=== PATIENT | male | born 1960 | race Caucasian/White ===

== ENCOUNTER 2018-11-24 07:03 | Emergency (ER) | payer MEDICARE | END 2018-11-24 08:42 | disposition home or self-care (01) | LOC: DL.ED 07:03 | DX: S43.101A Unspecified dislocation of right acromioclavicular joint, initial encounter (principal); S49.92XA Unspecified injury of left shoulder and upper arm, initial encounter; I10 Essential (primary) hypertension; G30.9 Alzheimer's disease, unspecified; F02.80 Dementia in other diseases classified elsewhere, unspecified severity, without behavioral disturbance, psychotic disturbance, mood disturbance, and anxiety; I25.10 Atherosclerotic heart disease of native coronary artery without angina pectoris; Z95.1 Presence of aortocoronary bypass graft; W01.198A Fall on same level from slipping, tripping and stumbling with subsequent striking against other object, initial encounter | CPT/HCPCS: 73030-LT; 73030-RT; 96372; 99283-25; J2360 ==

== ENCOUNTER 2019-08-20 11:30 | Emergency (ER) | payer MEDICARE ==
[2019-08-20 12:48] LABS: ANION GAP 12.9; CHLORIDE,CL 106 mmol/L (101-111); SODIUM,NA 138 mmol/L (135-145)
--- NOTE | 2019-08-20 13:23 | CT ---
EXAMINATION: Abdomen Pelvis wo Cont SEX: Male AGE: 58 years CLINICAL HISTORY: 58-year-old 221 pound hypertensive male smoker (cigars) who FELL last night injuring lower left abdomen (bright red "bloody stools"). ABDOMINAL PAIN. Scan technique: Volume acquisition of data from the abdomen and pelvis obtained without oral or IV contrast while patient was lying supine on the Siemens multislice scanner [place], [place]. All data archived in the PACS system for storage, reformatting axial/sagittal/coronal planes and study. Interpretation: 1. Densely calcified "cast" normal caliber aortoiliac vessels i.e. no aneurysm or dissection. 2. No sign of abdominal wall contusion or subcutaneous hematoma. No ventral wall hernias. 3. A few small diverticula scattered sigmoid colon without associated signs of inflammation. No colonic mass lesion, inflammatory "dirty" peritoneal fat, pelvic/abdominal mass lesion, signs of hemoperitoneum/ascites, or free air. 4. Cholecystectomy. Unenhanced liver, stomach, spleen, pancreas, adrenal glands and kidneys unremarkable. No sign of renal cortical laceration, cystic/solid cortical mass lesion, nephrolithiasis or obstructive uropathy. Normal appendix RLQ. 5. No abdominal or pelvic mass lesion, mesenteric/retroperitoneal lymphadenopathy, or mechanical bowel obstruction. 6. Multilevel disc disease and hypertrophic arthritic changes of spine. 7. Lung bases clear. Normal cardiac silhouette. CONCLUSION: Usual signs of senescence. Cholecystectomy. No sign of abdominal wall or acute intraperitoneal abnormality.
--- NOTE | 2019-08-20 14:31 | EDM.PDOC ---
ED HPI GENERAL MEDICAL PROBLEM - General Chief Complaint: Abdominal Pain Stated Complaint: BRAVO SENT OVER Time Seen by Provider: 08/20/19 14:10 Source of Information: Reports: Patient History Limitations: Reports: No Limitations - History of Present Illness INITIAL COMMENTS - FREE TEXT/NARRATIVE: This 58 yo male patient reports to the ED with increased abdominal pain. The patient reports he fell yesterday onto his left side. Yesterday, the patient reports he had a large "bloody" stool, but has not had another bloody stool since. The patient reports he has been experiencing increased diffuse abdominal pain throughout today. The patient reports he has also noticed increased gas today. Onset: Today Duration: Other Location: Reports: Abdomen Quality: Reports: Ache Severity: Moderate Improves with: Reports: None Worsens with: Reports: None Context: Reports: Other Associated Symptoms: Reports: No Other Symptoms Treatments SUPERINTENDENT HORTICULTURE: Reports: NSAIDS Left Lower Abdominal Pain Score (Numeric/FACES): 9 - Related Data Allergies Allergy/AdvReac Type Severity Reaction Status Date / Time iopamidol [From Isovue-M] Allergy Change Verified 08/20/19 11:57 Mental Status Penicillins Allergy Anaphylactic Verified 08/20/19 11:57 Shock Home Meds: Home Meds Acetaminophen 1,500 mg PO DAILY 08/20/19 [History] Aspirin [Halfprin] 81 mg PO DAILY 08/20/19 [History] Cyclobenzaprine [Flexeril] 10 mg PO TID PRN 08/20/19 [History] DULoxetine [Cymbalta] 60 mg PO DAILY 08/20/19 [History] Donepezil HCl [Aricept] 10 mg PO DAILY 08/20/19 [History] Levothyroxine 12.5 mg PO DAILY 08/20/19 [History] Loperamide [Imodium] 2 mg PO QID PRN 08/20/19 [History] Metoprolol Succinate [Toprol XL] 25 mg PO DAILY 08/20/19 [History] Mirtazapine 7.5 mg PO DAILY 08/20/19 [History] Pantoprazole Sodium [Protonix] 20 mg PO BID 08/20/19 [History] Pramipexole [Mirapex] 0.25 mg PO TID 08/20/19 [History] Pregabalin [Lyrica] 100 mg PO TID 08/20/19 [History] Sildenafil [Viagra] 100 mg PO DAILY PRN 08/20/19 [History] Vilazodone [Viibryd] 40 mg PO DAILY 08/20/19 [History] atorvaSTATin [Lipitor] 40 mg PO DAILY 08/20/19 [History] buPROPion HCl [Wellbutrin Xl] 150 mg PO DAILY 08/20/19 [History] Past Medical History Cardiovascular History: Reports: High Cholesterol, Hypertension, Stents Gastrointestinal History: Reports: Other (See Below) Other Gastrointestinal History: pancreatic problems Other Endocrine/Metabolic History: hx of hypoglycemia, not diagnosed with anything specific - Past Surgical History HEENT Surgical History: Reports: Oral Surgery, Other (See Below) Other HEENT Surgeries/Procedures: eye lid lift Other Cardiovascular Surgeries/Procedures: triple bypass in 1999 GI Surgical History: Reports: Cholecystectomy Musculoskeletal Surgical History: Reports: Shoulder Surgery Social & Family History - Caffeine Use Caffeine Use: Reports: Coffee - Recreational Drug Use Recreational Drug Use: Yes Drug Use in Last 12 Months: Yes Recreational Drug Type: Reports: Marijuana/Hashish Recreational Drug Use Frequency: Weekly ED ROS GENERAL - Review of Systems Review Of Systems: Comprehensive ROS is negative, except as noted in HPI. ED EXAM, GI/ABD - Physical Exam Exam: See Below Exam Limited By: No Limitations General Appearance: Alert, WD/WN, Moderate Distress Eyes: Bilateral: Normal Appearance, EOMI Ears: Normal External Exam, Normal Canal, Hearing Grossly Normal, Normal TMs Nose: Normal Inspection, Normal Mucosa, No Blood Throat/Mouth: Normal Inspection, Normal Lips, Normal Teeth, Normal Gums, Normal Oropharynx, Normal Voice, No Airway Compromise Head: Atraumatic, Normocephalic Neck: Normal Inspection, Supple, Non-Tender, Full Range of Motion Respiratory/Chest: No Respiratory Distress, Lungs Clear, Normal Breath Sounds, No Accessory Muscle Use, Chest Non-Tender Cardiovascular: Normal Peripheral Pulses, Regular Rate, Rhythm, No Edema, No Gallop, No JVD, No Murmur, No Rub GI/Abdominal Exam: Normal Bowel Sounds, Soft, No Organomegaly, No Distention, No Abnormal Bruit, No Mass, Pelvis Stable, Tender (diffuse) (Male) Exam: Deferred Rectal (Males) Exam: Deferred Back Exam: Normal Inspection, Full Range of Motion, NT Extremities: Normal Inspection, Normal Range of Motion, Non-Tender, Normal Capillary Refill, No Pedal Edema Neurological: Alert, Oriented, CN II-XII Intact, Normal Cognition, Normal Gait, Normal Reflexes, No Motor/Sensory Deficits Psychiatric: Normal Affect, Normal Mood Skin Exam: Warm, Dry, Intact, Normal Color, No Rash Lymphatic: No Adenopathy Course - Vital Signs Last Recorded V/S: Last Vital Signs Temp 37.1 C 08/20/19 11:57 Pulse 90 08/20/19 11:57 Resp 20 08/20/19 11:57 BP 132/80 08/20/19 11:57 Pulse Ox 98 08/20/19 11:57 - Orders/Labs/Meds Labs: Laboratory Tests 08/20/19 08/20/19 08/20/19 Range/Units 12:18 12:18 12:18 WBC 7.7 (5.0-10.0) 10^3/uL RBC 4.84 (4.6-6.2) 10^6/uL Hgb 14.9 (14.0-18.0) g/dL Hct 44.1 (40.0-54.0) % MCV 91.1 (80-100) fL MCH 30.8 (27.0-34.0) pg MCHC 33.8 (33.0-35.0) g/dL Plt Count 254 (150-450) 10^3/uL Neut % (Auto) 60.7 (42.2-75.2) % Lymph % (Auto) 22.2 (20.5-50.1) % [place] % (Auto) 12.2 H (2-8) % Eos % (Auto) 4.1 H (1.0-3.0) % Baso % (Auto) 0.8 (0.0-1.0) % Sodium 138 (135-145) mmol/L Potassium 3.9 (3.6-5.0) mmol/L Chloride 106 (101-111) mmol/L Carbon Dioxide 23.0 (21.0-31.0) mmol/L Anion Gap 12.9 BUN 7 (7-18) mg/dL Creatinine 0.9 (0.6-1.3) mg/dL Est Cr Clr Drug Dosing 96.45 mL/min Estimated GFR (MDRD) > 60 BUN/Creatinine Ratio 7.77 Glucose 105 (74-105) mg/dL Calcium 9.4 (8.4-10.2) mg/dl Total Bilirubin 0.6 (0.2-1.0) mg/dL AST 27 (10-42) IU/L ALT 21 (10-60) IU/L Alkaline Phosphatase 83 (42-121) IU/L Total Protein 7.4 (6.7-8.2) g/dl Albumin 4.2 (3.2-5.5) g/dl Globulin 3.2 Albumin/Globulin Ratio 1.31 Amylase 55 (28-100) U/L Lipase 32 (22-51) U/L Urine Color (YELLOW) Urine Appearance (CLEAR) Urine pH (5.0-9.0) Ur Specific [place] (1.005-1.030) Urine Protein (NEGATIVE) Urine Glucose (UA) (NEGATIVE) Urine Ketones (NEGATIVE) Urine Occult Blood (NEGATIVE) Urine Nitrite (NEGATIVE) Urine Bilirubin (NEGATIVE) Urine Urobilinogen (0.2-1.0) mg/dL Ur Leukocyte Esterase (NEGATIVE) 08/20/19 Range/Units 14:05 WBC (5.0-10.0) 10^3/uL RBC (4.6-6.2) 10^6/uL Hgb (14.0-18.0) g/dL Hct (40.0-54.0) % MCV (80-100) fL MCH (27.0-34.0) pg MCHC (33.0-35.0) g/dL Plt Count (150-450) 10^3/uL Neut % (Auto) (42.2-75.2) % Lymph % (Auto) (20.5-50.1) % [place] % (Auto) (2-8) % Eos % (Auto) (1.0-3.0) % Baso % (Auto) (0.0-1.0) % Sodium (135-145) mmol/L Potassium (3.6-5.0) mmol/L Chloride (101-111) mmol/L Carbon Dioxide (21.0-31.0) mmol/L Anion Gap BUN (7-18) mg/dL Creatinine (0.6-1.3) mg/dL Est Cr Clr Drug Dosing mL/min Estimated GFR (MDRD) BUN/Creatinine Ratio Glucose (74-105) mg/dL Calcium (8.4-10.2) mg/dl Total Bilirubin (0.2-1.0) mg/dL AST (10-42) IU/L ALT (10-60) IU/L Alkaline Phosphatase (42-121) IU/L Total Protein (6.7-8.2) g/dl Albumin (3.2-5.5) g/dl Globulin Albumin/Globulin Ratio Amylase (28-100) U/L Lipase (22-51) U/L Urine Color Yellow (YELLOW) Urine Appearance Clear (CLEAR) Urine pH 6.0 (5.0-9.0) Ur Specific [place] 1.015 (1.005-1.030) Urine Protein Negative (NEGATIVE) Urine Glucose (UA) Negative (NEGATIVE) Urine Ketones Negative (NEGATIVE) Urine Occult Blood Negative (NEGATIVE) Urine Nitrite Negative (NEGATIVE) Urine Bilirubin Negative (NEGATIVE) Urine Urobilinogen 0.2 (0.2-1.0) mg/dL Ur Leukocyte Esterase Negative (NEGATIVE) Departure - Departure Time of Disposition: 14:28 Disposition: Home, Self-Care 01 Condition: Fair Clinical Impression: Diverticulosis - Discharge Information *PRESCRIPTION DRUG MONITORING PROGRAM REVIEWED*: Not Applicable *COPY OF PRESCRIPTION DRUG MONITORING REPORT IN PATIENT BLADIMIR: Not Applicable Instructions: Diverticulosis Care Plan Goals: The patient was advised of the examination, lab and CT results during the visit. The patient was discharged with a script for Cipro (500 mg) #20 to take 1 by mouth 2 times per day for 10 days and Metronidazole (500 mg) #30 to take 1 by mouth 3 times per day for 10 days. The patient was encouraged to continue to be physically active to keep his bowels moving. If the patient has any additional symptoms or concerns, the patient should either return to the emergency department or visit his primary care facility.
== END 2019-08-20 14:45 | disposition home or self-care (01) ==
LOC: DL.ED 11:30
DX: K57.30 Diverticulosis of large intestine without perforation or abscess without bleeding (principal); I10 Essential (primary) hypertension; E78.00 Pure hypercholesterolemia, unspecified; Z91.041 Radiographic dye allergy status; Z79.82 Long term (current) use of aspirin; Z79.899 Other long term (current) drug therapy; Z88.0 Allergy status to penicillin
CPT/HCPCS: 36415; 74176; 80053; 81003; 82150; 83690; 85025; 99284-25

== ENCOUNTER 2019-09-01 06:56 | Emergency (ER) | payer MEDICARE, MEDICAID ==
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
== END 2019-09-01 08:30 | disposition home or self-care (01) ==
LOC: DL.ED 06:56
DX: S80.12XA Contusion of left lower leg, initial encounter (principal); S70.12XA Contusion of left thigh, initial encounter; I10 Essential (primary) hypertension; E78.00 Pure hypercholesterolemia, unspecified; Z88.0 Allergy status to penicillin; Z91.041 Radiographic dye allergy status; Z79.82 Long term (current) use of aspirin; Z79.899 Other long term (current) drug therapy; V49.9XXA Car occupant (driver) (passenger) injured in unspecified traffic accident, initial encounter; Y99.0 Civilian activity done for income or pay
CPT/HCPCS: 73590-LT; 99283-25

== ENCOUNTER 2019-09-18 11:40 | Emergency (ER) | payer MEDICARE, MEDICAID ==
[2019-09-18] MEDS ORDERED: Lidocaine 5% Oint 35.44 GM Tube TOP ONE (11:55)
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
== END 2019-09-18 12:07 | disposition home or self-care (01) ==
LOC: DL.ED 11:40
DX: M25.552 Pain in left hip (principal); M25.511 Pain in right shoulder; I25.10 Atherosclerotic heart disease of native coronary artery without angina pectoris; E78.00 Pure hypercholesterolemia, unspecified; I10 Essential (primary) hypertension; K21.9 Gastro-esophageal reflux disease without esophagitis; M79.7 Fibromyalgia; E03.9 Hypothyroidism, unspecified; E66.9 Obesity, unspecified; G62.9 Polyneuropathy, unspecified; G20 Parkinson's disease; F03.90 Unspecified dementia, unspecified severity, without behavioral disturbance, psychotic disturbance, mood disturbance, and anxiety; G25.81 Restless legs syndrome; F32.9 Major depressive disorder, single episode, unspecified; Z95.1 Presence of aortocoronary bypass graft; Z90.49 Acquired absence of other specified parts of digestive tract; Z88.0 Allergy status to penicillin; Z88.8 Allergy status to other drugs, medicaments and biological substances; Z91.041 Radiographic dye allergy status; Z95.5 Presence of coronary angioplasty implant and graft; Z79.82 Long term (current) use of aspirin; Z79.890 Hormone replacement therapy; Z79.899 Other long term (current) drug therapy; Z68.34 Body mass index [BMI] 34.0-34.9, adult
CPT/HCPCS: 99283; A9270

== ENCOUNTER 2020-03-19 12:39 | Emergency (ER) | payer MEDICARE, MEDICAID | END 2020-03-19 13:00 | disposition home or self-care (01) | LOC: DL.ED 12:39 | DX: Z53.21 Procedure and treatment not carried out due to patient leaving prior to being seen by health care provider (principal) ==

== ENCOUNTER 2020-04-03 10:00 | Emergency (ER) | payer MEDICARE, MEDICAID ==
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
[2020-04-03 11:13] LABS: ANION GAP 13.4 mEq/L (7-13); CHLORIDE,CL 103 mmol/L (98-107); SODIUM,NA 141 mmol/L (136-145)
--- NOTE | 2020-04-03 13:17 | US ---
PROCEDURE INFORMATION: Exam: US Duplex Right Lower Extremity Veins, Limited Exam date and time: 04/03/2020 12:04 PM Age: 59 years old Clinical indication: Abnormal findings; Abnormal lab test; Elevated d-dimer; Patient HX: Edema, swollen and painful RT great toe with discoloration; Additional info: Right lower extremity edema (d-dimer - 3110) TECHNIQUE: Imaging protocol: Real-time Duplex ultrasound of the Right Lower Extremity with 2-D martini scale, color Doppler flow and spectral waveform analysis with image documentation. Limited exam was focused on the right lower extremity veins. COMPARISON: No relevant prior studies available. FINDINGS: Right deep veins: Unremarkable. The common femoral, femoral, proximal profunda femoral and popliteal veins are patent without thrombus. Normal Doppler waveforms. Normal compressibility and/or augmentation response. Right superficial veins: Unremarkable. Saphenofemoral junction is patent without thrombus. Soft tissues: Unremarkable. IMPRESSION: No evidence of deep vein thrombosis in the right lower extremity.
--- NOTE | 2020-04-03 13:37 | US ---
PROCEDURE INFORMATION: Exam: US Duplex Right Lower Extremity Arteries Or Arterial Bypass Grafts Exam date and time: 04/03/2020 12:30 PM Age: 59 years old Clinical indication: Patient HX: RT toe discoloration swollen and painful, recent RT should er surgery, elevated d-dimer; Additional info: Right leg TECHNIQUE: Imaging protocol: Right Real-time duplex scan of the arteries or arterial bypass grafts of the right lower extremity with 2-D martini scale, color Doppler flow and spectral waveform analysis. Images documented and saved. COMPARISON: No relevant prior studies available. FINDINGS: Atherosclerotic plaque. Right common femoral artery: No occlusion or significant stenosis. Normal waveform. Right superficial femoral artery: No occlusion or significant stenosis. Normal waveform. Right popliteal artery: No occlusion or significant stenosis. Normal waveform. Right calf/foot arteries: No occlusion. Reduced flow velocity in the right dorsalis pedis artery. Soft tissues: Unremarkable. IMPRESSION: No acute findings. Atherosclerotic plaque, probable dorsalis pedis stenosis.
== END 2020-04-03 13:54 | disposition home or self-care (01) ==
LOC: DL.ED 10:00
DX: M79.671 Pain in right foot (principal); I10 Essential (primary) hypertension; E78.00 Pure hypercholesterolemia, unspecified; I25.10 Atherosclerotic heart disease of native coronary artery without angina pectoris; Z95.5 Presence of coronary angioplasty implant and graft; K21.9 Gastro-esophageal reflux disease without esophagitis; E03.9 Hypothyroidism, unspecified; E66.9 Obesity, unspecified; Z88.0 Allergy status to penicillin; Z79.899 Other long term (current) drug therapy; Z91.041 Radiographic dye allergy status; Z79.82 Long term (current) use of aspirin
CPT/HCPCS: 36415; 80053; 85025; 85379; 93926; 93971; 99284-25

== ENCOUNTER 2020-09-23 17:46 | Emergency (ER) | payer MEDICARE, MEDICAID ==
--- NOTE | 2020-09-23 18:16 | EDM.PDOC ---
ED HPI GENERAL MEDICAL PROBLEM - General Chief Complaint: Upper Extremity Injury/Pain Stated Complaint: LEFT WRIST PAIN CANNOT MOVE FINGERS BUZZING Time Seen by Provider: 09/23/20 18:11 Source of Information: Reports: Patient, Old Records, RN, RN Notes Reviewed History Limitations: Reports: No Limitations - History of Present Illness INITIAL COMMENTS - FREE TEXT/NARRATIVE: Pt presents to ER by POV with c/o left wrist pain sustained when he accidentally shut it in the truck door. Denies any other injury. Pt took two tablets of Ibuprofen but it didn't help the pain much. 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: NSAIDS - Related Data Allergies Allergy/AdvReac Type Severity Reaction Status Date / Time Iodinated Contrast Media Allergy Swelling Verified 04/03/20 10:10 iopamidol [From Isovue-M] Allergy Change Verified 04/03/20 10:10 Mental Status Penicillins Allergy Anaphylactic Verified 04/03/20 10:10 Shock Home Meds: Home Meds Acetaminophen 1,500 mg PO DAILY 08/20/19 [History] Aspirin [Halfprin] 81 mg PO DAILY 08/20/19 [History] DULoxetine [Cymbalta] 60 mg PO BEDTIME 08/20/19 [History] Donepezil HCl [Aricept] 10 mg PO BEDTIME 08/20/19 [History] Levothyroxine 12.5 mg PO DAILY 08/20/19 [History] Loperamide [Imodium] 2 mg PO QID PRN 08/20/19 [History] Metoprolol Succinate [Toprol XL] 25 mg PO DAILY 08/20/19 [History] Mirtazapine 7.5 mg PO DAILY 08/20/19 [History] Pantoprazole Sodium [Protonix] 20 mg PO BID 08/20/19 [History] Pramipexole [Mirapex] 0.25 mg PO TID 08/20/19 [History] Pregabalin [Lyrica] 100 mg PO TID 08/20/19 [History] Sildenafil [Viagra] 100 mg PO DAILY PRN 08/20/19 [History] Vilazodone [Viibryd] 40 mg PO DAILY 08/20/19 [History] atorvaSTATin [Lipitor] 40 mg PO DAILY 08/20/19 [History] buPROPion HCL [Wellbutrin Xl] 150 mg PO DAILY 08/20/19 [History] Ibuprofen 800 mg PO ASDIRECTED 09/01/19 [History] Past Medical History Cardiovascular History: Reports: CAD, High Cholesterol, Hypertension, Stents Respiratory History: Reports: None Gastrointestinal History: Reports: GERD, Pancreatitis, Other (See Below) Other Gastrointestinal History: pancreatic problems Genitourinary History: Reports: None Musculoskeletal History: Reports: Fibromyalgia, Other (See Below) Other Musculoskeletal History: RIGHT SHOULDER TENINITIS Neurological History: Reports: Neuropathy, Peripheral, Parkinson's, Other (See Below) Other Neuro History: DEMENTIA. RESTLESS LEG SYNDROME Psychiatric History: Reports: Depression Endocrine/Metabolic History: Reports: Hypothyroidism, Obesity/BMI 30+ Other Endocrine/Metabolic History: hx of hypoglycemia, not diagnosed with anything specific Hematologic History: Reports: None Immunologic History: Reports: None Oncologic (Cancer) History: Reports: None Dermatologic History: Reports: None - Infectious Disease History Infectious Disease History: Reports: Chicken Pox - Past Surgical History Head Surgeries/Procedures: Reports: None HEENT Surgical History: Reports: Oral Surgery, Other (See Below) Other HEENT Surgeries/Procedures: eye lid lift Cardiovascular Surgical History: Reports: Coronary Artery Bypass, Coronary Artery Stent Other Cardiovascular Surgeries/Procedures: triple bypass in 1999 GI Surgical History: Reports: Cholecystectomy, Colonoscopy, EGD, Hernia Repair/Other Male Surgical History: Reports: None Endocrine Surgical History: Reports: None Neurological Surgical History: Reports: None Musculoskeletal Surgical History: Reports: Arthroscopic Knee, Shoulder Surgery Oncologic Surgical History: Reports: None Dermatological Surgical History: Reports: None Social & Family History - Family History Family Medical History: No Pertinent Family History - Caffeine Use Caffeine Use: Reports: Coffee Caffeine Use Comment: 6 cups daily - Recreational Drug Use Recreational Drug Use: Yes Recreational Drug Type: Reports: Marijuana/Hashish - Living Situation & Occupation Occupation: Employed Review of Systems - Review of Systems Review Of Systems: Comprehensive ROS is negative, except as noted in HPI. ED EXAM, GENERAL - Physical Exam Exam: See Below Exam Limited By: No Limitations General Appearance: Alert, WD/WN, No Apparent Distress Head: Atraumatic, Normocephalic Respiratory/Chest: No Respiratory Distress Peripheral Pulses: 3+: Radial (L), Radial (R) Extremities: Normal Capillary Refill, Arm Pain (Left distal forearm is tender with no visible swelling, bruising, or deformity. Painful ROM of left wrist.) Neurological: Alert, Oriented, No Motor/Sensory Deficits Psychiatric: Normal Mood Skin Exam: Warm, Dry, Intact, Normal Color, No Rash Course - Vital Signs Last Recorded V/S: Last Vital Signs Temp 97.4 F 09/23/20 18:09 Pulse 60 09/23/20 18:09 Resp 14 09/23/20 18:09 BP 101/69 09/23/20 18:09 Pulse Ox 99 09/23/20 18:09 - Orders/Labs/Meds Orders: Active Orders 24 hr Category Date Time Status Wrist Comp Min 3V Lt [CR] Urgent Exams 09/23/20 18:10 Ordered Meds: Medications Discontinued Medications Generic Name Dose Route Start Last Admin Trade Name Freq PRN Reason Stop Dose Admin Lidocaine HCl 30 gm 09/23/20 18:26 Lidocaine 5% TOP 09/23/20 18:27 ONETIME ONE - Radiology Interpretation Free Text/Narrative:: XR left wrist: no acute fractures, see Rad. report. Departure - Departure Time of Disposition: 18:28 Disposition: Home, Self-Care 01 Condition: Good Clinical Impression: Contusion of left wrist, initial encounter - Discharge Information *PRESCRIPTION DRUG MONITORING PROGRAM REVIEWED*: Not Applicable *COPY OF PRESCRIPTION DRUG MONITORING REPORT IN PATIENT BLADIMIR: Not Applicable Instructions: Contusion, [id number] Forms: ED Department Discharge Additional Instructions: Lidocaine Ointment 5% apply to area of pain every 4 hours as needed. Rest, ice pack, and elevate left wrist to reduce pain and swelling. Activity as tolerated. Follow up in clinic if not improving as expected. Sepsis Event Note (ED) - Focused Exam Vital Signs: Vital Signs Temp Pulse Resp BP Pulse Ox 09/23/20 18:09 97.4 F 60 14 101/69 99 - My Orders Last 24 Hours: My Active Orders 09/23/20 18:10 Wrist Comp Min 3V Lt [CR] Urgent - Assessment/Plan Last 24 Hours: My Active Orders 09/23/20 18:10 Wrist Comp Min 3V Lt [CR] Urgent
[2020-09-23] MEDS ORDERED: Lidocaine 5% Oint 35.44 GM Tube TOP ONE (18:26)
--- NOTE | 2020-09-23 18:33 | CR ---
PROCEDURE INFORMATION: Exam: XR Left Wrist Exam date and time: 09/23/2020 6:20 PM Age: 59 years old Clinical indication: Other: Pain; Additional info: Shut left wrist in truck door TECHNIQUE: Imaging protocol: XR Left wrist. Views: 3 or more views. COMPARISON: No relevant prior studies available. FINDINGS: Bones/joints: Normal. No fracture. Soft tissues: Normal. Multiple small surgical clips noted in the lateral soft tissues of the distal forearm. IMPRESSION: No acute findings.
== END 2020-09-23 18:39 | disposition home or self-care (01) ==
LOC: DL.ED 17:46
DX: S60.212A Contusion of left wrist, initial encounter (principal); I25.10 Atherosclerotic heart disease of native coronary artery without angina pectoris; E78.00 Pure hypercholesterolemia, unspecified; I10 Essential (primary) hypertension; K21.9 Gastro-esophageal reflux disease without esophagitis; F32.9 Major depressive disorder, single episode, unspecified; E03.9 Hypothyroidism, unspecified; E66.9 Obesity, unspecified; G20 Parkinson's disease; G25.81 Restless legs syndrome; F03.90 Unspecified dementia, unspecified severity, without behavioral disturbance, psychotic disturbance, mood disturbance, and anxiety; G62.9 Polyneuropathy, unspecified; Z91.041 Radiographic dye allergy status; Z88.0 Allergy status to penicillin; Z88.8 Allergy status to other drugs, medicaments and biological substances; Z79.82 Long term (current) use of aspirin; Z79.899 Other long term (current) drug therapy; Z95.5 Presence of coronary angioplasty implant and graft; W22.8XXA Striking against or struck by other objects, initial encounter
CPT/HCPCS: 73110; 99283; A9270

== ENCOUNTER 2021-01-10 10:52 | Emergency (ER) | payer MEDICARE, MEDICAID ==
--- NOTE | 2021-01-10 11:51 | EDM.PDOC ---
ED HPI GENERAL MEDICAL PROBLEM - General Chief Complaint: Upper Extremity Injury/Pain Stated Complaint: PRIOR SURGERY/PAINFUL OR LOOSE SCREWS Time Seen by Provider: 01/10/21 11:35 Source of Information: Reports: Patient History Limitations: Reports: No Limitations - History of Present Illness INITIAL COMMENTS - FREE TEXT/NARRATIVE: This 60 yo male patient reports to the ED with increased pain to his right shoulder. The patient reports he had surgery last week with Dr. Chang at [facility]. The patient reports he feels like the "screws are moving" causing increased pain. The patient reports he has been taking Tylenol and ibuprofen with little to no pain relief. The patient denies any recent falls or trauma to the area. The patient reports he has been following all directions given to him after surgery. 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 - Related Data Allergies Allergy/AdvReac Type Severity Reaction Status Date / Time Iodinated Contrast Media Allergy Swelling Verified 10/28/20 19:07 iopamidol [From Isovue-M] Allergy Change Verified 10/28/20 19:07 Mental Status Penicillins Allergy Anaphylactic Verified 10/28/20 19:07 Shock Home Meds: Home Meds Aspirin [Halfprin] 81 mg PO DAILY 08/20/19 [History] DULoxetine [Cymbalta] 60 mg PO BEDTIME 08/20/19 [History] Donepezil HCl [Aricept] 10 mg PO BEDTIME 08/20/19 [History] Levothyroxine 12.5 mg PO DAILY 08/20/19 [History] Loperamide [Imodium] 2 mg PO QID PRN 08/20/19 [History] Metoprolol Succinate [Toprol XL] 25 mg PO DAILY 08/20/19 [History] Mirtazapine 7.5 mg PO DAILY 08/20/19 [History] Pantoprazole Sodium [Protonix] 20 mg PO BID 08/20/19 [History] Pramipexole [Mirapex] 0.25 mg PO TID 08/20/19 [History] Pregabalin [Lyrica] 100 mg PO TID 08/20/19 [History] Sildenafil [Viagra] 100 mg PO DAILY PRN 08/20/19 [History] Vilazodone [Viibryd] 40 mg PO DAILY 08/20/19 [History] atorvaSTATin [Lipitor] 40 mg PO DAILY 08/20/19 [History] buPROPion HCL [Wellbutrin Xl] 150 mg PO DAILY 08/20/19 [History] Ibuprofen 800 mg PO ASDIRECTED 09/01/19 [History] Past Medical History Cardiovascular History: Reports: CAD, High Cholesterol, Hypertension, Stents Respiratory History: Reports: None Gastrointestinal History: Reports: GERD, Pancreatitis, Other (See Below) Other Gastrointestinal History: pancreatic problems Genitourinary History: Reports: None Musculoskeletal History: Reports: Fibromyalgia, Other (See Below) Other Musculoskeletal History: RIGHT SHOULDER TENINITIS. Right shoulder replacement 2020 Neurological History: Reports: Neuropathy, Peripheral, Parkinson's, Other (See Below) Other Neuro History: DEMENTIA. RESTLESS LEG SYNDROME Psychiatric History: Reports: Depression Endocrine/Metabolic History: Reports: Hypothyroidism, Obesity/BMI 30+ Other Endocrine/Metabolic History: hx of hypoglycemia, not diagnosed with anything specific Hematologic History: Reports: None Immunologic History: Reports: None Oncologic (Cancer) History: Reports: None Dermatologic History: Reports: None - Infectious Disease History Infectious Disease History: Reports: Chicken Pox - Past Surgical History Head Surgeries/Procedures: Reports: None HEENT Surgical History: Reports: Oral Surgery, Other (See Below) Other HEENT Surgeries/Procedures: eye lid lift Cardiovascular Surgical History: Reports: Coronary Artery Bypass, Coronary Artery Stent Other Cardiovascular Surgeries/Procedures: triple bypass in 1999 GI Surgical History: Reports: Cholecystectomy, Colonoscopy, EGD, Hernia Repair/Other Male Surgical History: Reports: None Endocrine Surgical History: Reports: None Neurological Surgical History: Reports: None Musculoskeletal Surgical History: Reports: Arthroscopic Knee, Shoulder Surgery Oncologic Surgical History: Reports: None Dermatological Surgical History: Reports: None Social & Family History - Family History Family Medical History: No Pertinent Family History - Tobacco Use Tobacco Use Status *Q: Current Some Day Tobacco User Years of Tobacco use: 3 Packs/Tins Daily: 1 - Caffeine Use Caffeine Use: Reports: Coffee Caffeine Use Comment: 6 cups daily - Recreational Drug Use Recreational Drug Use: Yes Recreational Drug Type: Reports: Marijuana/Hashish Other Recreational Drug Type: medical card - Living Situation & Occupation Occupation: Employed Review of Systems - Review of Systems Review Of Systems: Comprehensive ROS is negative, except as noted in HPI. ED EXAM, GENERAL - Physical Exam Exam: See Below Exam Limited By: No Limitations General Appearance: Alert, WD/WN, Moderate Distress Eye Exam: Bilateral Eye: EOMI, Normal Inspection, PERRL Ears: Normal External Exam, Normal Canal, Hearing Grossly Normal, Normal TMs Nose: Normal Inspection, Normal Mucosa, No Blood Throat/Mouth: Normal Inspection, Normal Lips, Normal Teeth, Normal Gums, Normal Oropharynx, Normal Voice, No Airway Compromise Head: Atraumatic, Normocephalic Neck: Normal Inspection, Supple, Non-Tender, Full Range of Motion Respiratory/Chest: No Respiratory Distress, Lungs Clear, Normal Breath Sounds, No Accessory Muscle Use, Chest Non-Tender Cardiovascular: Normal Peripheral Pulses, Regular Rate, Rhythm, No Edema, No Gallop, No JVD, No Murmur, No Rub GI/Abdominal: Normal Bowel Sounds (Male) Exam: Deferred Rectal (Males) Exam: Deferred Extremities: Arm Pain (right shoulder pain), Limited Range of Motion Neurological: Alert, Oriented, CN II-XII Intact, Normal Cognition, Normal Gait, Normal Reflexes, No Motor/Sensory Deficits Psychiatric: Normal Affect, Normal Mood Skin Exam: Warm, Dry, Intact, Normal Color, No Rash Lymphatic: No Adenopathy Course - Vital Signs Last Recorded V/S: Last Vital Signs Temp 36.1 C 01/10/21 11:03 Pulse 76 01/10/21 11:03 Resp 16 01/10/21 11:03 BP 135/79 01/10/21 11:03 Pulse Ox 98 01/10/21 11:03 - Orders/Labs/Meds Orders: Active Orders 24 hr Category Date Time Status Shoulder Comp Rt [CR] Urgent Exams 01/10/21 11:12 Ordered - Re-Assessments/Exams Free Text/Narrative Re-Assessment/Exam: 01/10/21 11:44 A call was placed to [facility] (Dr. Chang's nurse [place]). A message was left requesting a return call. The x-rays were pushed over on their PACs machine. 01/10/21 12:07 Received a return call from Dr. Chang. Dr. Chang would like to see the patient on Sunday (01/14/21) at 0845 at [facility]. Departure - Departure Time of Disposition: 12:08 Disposition: Home, Self-Care 01 Condition: Fair Clinical Impression: Acute postoperative pain of right shoulder - Discharge Information *PRESCRIPTION DRUG MONITORING PROGRAM REVIEWED*: Not Applicable *COPY OF PRESCRIPTION DRUG MONITORING REPORT IN PATIENT BLADIMIR: Not Applicable Instructions: Shoulder Pain, [id number] Care Plan Goals: The patient was advised of the examination and x-ray results during the visit. Dr. Chang was consulted during the visit. The patient is scheduled for a follow-up appointment with Dr. Chang on Sunday (01/14/21) at 0845 at [facility]. The patient was discharged with a script for Oxycodone (5 mg) #6 to take 1 by mouth at bedtime as needed for pain. The patient was encouraged to keep the immobilizer in place until the visit in [place]. If the patient has any additional symptoms or concerns, the patient should either return to the emergency department or visit his primary care facility. Sepsis Event Note (ED) - Evaluation Sepsis Screening Result: No Definite Risk - Focused Exam Vital Signs: Vital Signs Temp Pulse Resp BP Pulse Ox 01/10/21 11:03 36.1 C 76 16 135/79 98 - My Orders Last 24 Hours: My Active Orders 01/10/21 11:12 Shoulder Comp Rt [CR] Urgent - Assessment/Plan Last 24 Hours: My Active Orders 01/10/21 11:12 Shoulder Comp Rt [CR] Urgent
--- NOTE | 2021-01-10 11:58 | CR ---
EXAMINATION: Shoulder Comp Rt SEX: Male AGE: 60 years CLINICAL HISTORY: 60-year-old male complaining of right shoulder PAIN who has history of previous surgeries. Patient reported on MRI right shoulder 21 October 2019 (for pain; 2018 repair) to have "large glenohumeral joint effusion; full-thickness supra and infraspinatus tendon re-tears; severe muscle atrophy; and severe tendinosis." Reevaluate. Comparison plain film exam 24 November 2018. Interpretation (5 views): Abnormal. 1. Resection acromion process right scapula now replaced with horizontal metallic bar and 7 screws (5 anchored into upper body scapula). No associated inflammatory changes or signs of osteomyelitis. 2. Total new right shoulder prosthesis satisfactorily anchored glenoid portion of the scapula and proximal right humerus. Anatomic alignment. No sign of loosening. 3. No acute fracture or dislocation right shoulder. 4. Underlying ribs upper right hemithorax unremarkable. No atelectasis/collapse RUL. No pneumothorax. CONCLUSION: Total right shoulder replacement since comparison plain film 24 November 2018 and MRI 16 October 2019. No sign of acute fracture, dislocation or right shoulder infection.
== END 2021-01-10 12:17 | disposition home or self-care (01) ==
LOC: DL.ED 10:52
DX: G89.18 Other acute postprocedural pain (principal); M25.511 Pain in right shoulder; I25.10 Atherosclerotic heart disease of native coronary artery without angina pectoris; E78.00 Pure hypercholesterolemia, unspecified; I10 Essential (primary) hypertension; K21.9 Gastro-esophageal reflux disease without esophagitis; G20 Parkinson's disease; G25.81 Restless legs syndrome; E03.9 Hypothyroidism, unspecified; F03.90 Unspecified dementia, unspecified severity, without behavioral disturbance, psychotic disturbance, mood disturbance, and anxiety; E66.9 Obesity, unspecified; Z68.27 Body mass index [BMI] 27.0-27.9, adult; Z91.041 Radiographic dye allergy status; Z88.0 Allergy status to penicillin; Z79.82 Long term (current) use of aspirin; Z79.899 Other long term (current) drug therapy; Z95.5 Presence of coronary angioplasty implant and graft; Z72.0 Tobacco use
CPT/HCPCS: 73030-RT; 99283; 99283-25

== ENCOUNTER 2021-05-22 04:00 | Emergency (ER) | payer MEDICARE, MEDICAID ==
--- NOTE | 2021-05-22 04:23 | EDM.PDOC ---
ED HPI GENERAL MEDICAL PROBLEM - General Chief Complaint: Lower Extremity Injury/Pain Stated Complaint: PAIN AND NUMBNESS IN LEFT LEG Time Seen by Provider: 05/22/21 04:19 Source of Information: Reports: Patient, RN Notes Reviewed - History of Present Illness INITIAL COMMENTS - FREE TEXT/NARRATIVE: Pt is here for severe pain in his left hip and lower back. He has been seen and worked up including an MRI of his back, but is now just waiting to hear what the results were. He reports the pain is a 10/10 and he has not slept well in 4 days. He noted the pain starts in his left lower back then radiates down his left hip and buttock. He denies any new numbness or tingling. He denies any new injury to the area. No changes to bowel or bladder. - Related Data Allergies Allergy/AdvReac Type Severity Reaction Status Date / Time Iodinated Contrast Media Allergy Swelling Verified 01/15/21 09:24 iopamidol [From Isovue-M] Allergy Change Verified 01/15/21 09:24 Mental Status Penicillins Allergy Anaphylactic Verified 01/15/21 09:24 Shock Home Meds: Home Meds Aspirin [Halfprin] 81 mg PO DAILY 08/20/19 [History] DULoxetine [Cymbalta] 60 mg PO BEDTIME 08/20/19 [History] Donepezil HCl [Aricept] 10 mg PO BEDTIME 08/20/19 [History] Levothyroxine 12.5 mg PO DAILY 08/20/19 [History] Loperamide [Imodium] 2 mg PO QID PRN 08/20/19 [History] Metoprolol Succinate [Toprol XL] 25 mg PO DAILY 08/20/19 [History] Mirtazapine 7.5 mg PO DAILY 08/20/19 [History] Pantoprazole Sodium [Protonix] 20 mg PO BID 08/20/19 [History] Pramipexole [Mirapex] 0.25 mg PO TID 08/20/19 [History] Pregabalin [Lyrica] 100 mg PO TID 08/20/19 [History] Sildenafil [Viagra] 100 mg PO DAILY PRN 08/20/19 [History] Vilazodone [Viibryd] 40 mg PO DAILY 08/20/19 [History] atorvaSTATin [Lipitor] 40 mg PO DAILY 08/20/19 [History] buPROPion HCL [Wellbutrin Xl] 150 mg PO DAILY 08/20/19 [History] Ibuprofen 800 mg PO ASDIRECTED 09/01/19 [History] Past Medical History Cardiovascular History: Reports: CAD, High Cholesterol, Hypertension, Stents Respiratory History: Reports: None Gastrointestinal History: Reports: GERD, Pancreatitis, Other (See Below) Other Gastrointestinal History: pancreatic problems Genitourinary History: Reports: None Musculoskeletal History: Reports: Fibromyalgia, Other (See Below) Other Musculoskeletal History: RIGHT SHOULDER TENINITIS. Right shoulder replacement 2020 Neurological History: Reports: Neuropathy, Peripheral, Parkinson's, Other (See Below) Other Neuro History: DEMENTIA. RESTLESS LEG SYNDROME Psychiatric History: Reports: Dementia, Depression Endocrine/Metabolic History: Reports: Hypothyroidism, Obesity/BMI 30+ Other Endocrine/Metabolic History: hx of hypoglycemia, not diagnosed with anything specific Hematologic History: Reports: None Immunologic History: Reports: None Oncologic (Cancer) History: Reports: None Dermatologic History: Reports: None - Infectious Disease History Infectious Disease History: Reports: Chicken Pox - Past Surgical History Head Surgeries/Procedures: Reports: None HEENT Surgical History: Reports: Oral Surgery, Other (See Below) Other HEENT Surgeries/Procedures: eye lid lift Cardiovascular Surgical History: Reports: Coronary Artery Bypass, Coronary Artery Stent Other Cardiovascular Surgeries/Procedures: triple bypass in 1999 GI Surgical History: Reports: Cholecystectomy, Colonoscopy, EGD, Hernia Repair/Other Male Surgical History: Reports: None Endocrine Surgical History: Reports: None Neurological Surgical History: Reports: None Musculoskeletal Surgical History: Reports: Arthroscopic Knee, Shoulder Surgery Oncologic Surgical History: Reports: None Dermatological Surgical History: Reports: None Social & Family History - Family History Family Medical History: No Pertinent Family History - Caffeine Use Caffeine Use: Reports: Coffee Caffeine Use Comment: 6 cups daily - Living Situation & Occupation Occupation: Employed Review of Systems - Review of Systems Review Of Systems: Comprehensive ROS is negative, except as noted in HPI. ED EXAM, GENERAL - Physical Exam Exam: See Below Exam Limited By: No Limitations General Appearance: Alert, WD/WN, No Apparent Distress Eye Exam: Bilateral Eye: Normal Inspection Ears: Normal External Exam Throat/Mouth: Normal Voice, No Airway Compromise Head: Atraumatic, Normocephalic Neck: Supple, Non-Tender Respiratory/Chest: No Respiratory Distress, Lungs Clear, Normal Breath Sounds, No Accessory Muscle Use, Chest Non-Tender Cardiovascular: Normal Peripheral Pulses, Regular Rate, Rhythm, No Murmur GI/Abdominal: Soft, Non-Tender (Male) Exam: Deferred Rectal (Males) Exam: Deferred Back Exam: Normal Inspection, Other (tenderness to left lower back) Extremities: No Pedal Edema, Normal Capillary Refill Neurological: Alert, Oriented, Normal Cognition, No Motor/Sensory Deficits Psychiatric: Normal Affect, Normal Mood Skin Exam: Warm, Dry, Intact Course - Vital Signs Last Recorded V/S: Last Vital Signs Temp 97.6 F 05/22/21 04:13 Pulse 77 05/22/21 04:13 Resp 18 05/22/21 04:13 BP 118/76 05/22/21 04:13 Pulse Ox 98 05/22/21 04:13 Departure - Departure Time of Disposition: 04:27 Disposition: Home, Self-Care 01 Condition: Good Clinical Impression: Low back pain Qualifiers: Chronicity: chronic Back pain laterality: left Sciatica presence: with sciatica Sciatica laterality: sciatica of left side Qualified Code(s): M54.42 - Lumbago with sciatica, left side; G89.29 - Other chronic pain - Discharge Information *PRESCRIPTION DRUG MONITORING PROGRAM REVIEWED*: Not Applicable *COPY OF PRESCRIPTION DRUG MONITORING REPORT IN PATIENT BLADIMIR: Not Applicable Instructions: Chronic Back Pain, [id number] Additional Instructions: Over the counter medications as needed for pain relief Continue ice and heat therapy Follow up with primary care provider in 3-5 days Sepsis Event Note (ED) - Focused Exam Vital Signs: Vital Signs Temp Pulse Resp BP Pulse Ox 05/22/21 04:13 97.6 F 77 18 118/76 98
[2021-05-22] MEDS ORDERED: HYDROmorphone 1 MG/ML Syringe IM ONE (04:27)
== END 2021-05-22 04:38 | disposition home or self-care (01) ==
LOC: DL.ED 04:00
DX: M54.42 Lumbago with sciatica, left side (principal); I25.10 Atherosclerotic heart disease of native coronary artery without angina pectoris; E78.00 Pure hypercholesterolemia, unspecified; I10 Essential (primary) hypertension; K21.9 Gastro-esophageal reflux disease without esophagitis; E03.9 Hypothyroidism, unspecified; E66.9 Obesity, unspecified; Z68.26 Body mass index [BMI] 26.0-26.9, adult; Z95.5 Presence of coronary angioplasty implant and graft; Z88.0 Allergy status to penicillin; Z91.041 Radiographic dye allergy status
CPT/HCPCS: 96372; 99283; J1170

== ENCOUNTER 2021-09-14 14:09 | Emergency (ER) | payer MEDICARE, MEDICAID ==
[2021-09-14] MEDS ORDERED: HYDROmorphone 1 MG/ML Syringe IVPUSH ONE (14:27)
--- NOTE | 2021-09-14 14:53 | CR ---
EXAMINATION: Lumbar Spine 2 or 3V SEX: Male AGE: 60 years CLINICAL HISTORY: 60-year-old male injured in fall. Previous back surgery. Interpretation: Evidence of low back surgery (posterior fusion L4 and L5 vertebra with artificial intervertebral disc). Generalized osteopenia and mild compression T12/L1 vertebral bodies with associated marginal spondylosis that was evident on previous MRI exam 19 May 2021 (posterior fusion surgery new since April 2021). *No acute new lumbar fracture or spondylolisthesis. Symmetric spacing normal-appearing SI and hip joints. Surgical clips RUQ.
--- NOTE | 2021-09-14 14:56 | CR ---
EXAMINATION: Shoulder Comp Rt 2V SEX: Male AGE: 60 years CLINICAL HISTORY: 60-year-old male with right shoulder pain (fall). Comparison exam 10 January 2021. Interpretation: Orthopedic plate with multiple screws has been removed since 10 January 2021 exam. Total right shoulder prosthesis (humeral and glenoid components) satisfactorily "seated", anatomically aligned, and unchanged since December. Chronic arthritic changes ipsilateral acromioclavicular joint. *No sign of acute new right shoulder fracture or dislocation. Underlying ribs and upper right hemithorax unremarkable. Sternotomy wires midline
--- NOTE | 2021-09-14 15:35 | EDM.PDOC ---
ED HPI GENERAL MEDICAL PROBLEM - General Stated Complaint: AMBULANCE Time Seen by Provider: 09/14/21 15:20 Source of Information: Reports: Patient History Limitations: Reports: No Limitations - History of Present Illness INITIAL COMMENTS - FREE TEXT/NARRATIVE: This 60 yo male patient was brought to the ED by [facility] with pain to his right shoulder and lower back pain. The patient reports he was walking up the stairs when he missed a step and fell. The patient reports decreased range of motion in his shoulder and pain in his back since the fall. Onset: Today Duration: Constant Location: Reports: Back, Upper Extremity, Right Quality: Reports: Ache, Dull Severity: Moderate Improves with: Reports: None Worsens with: Reports: None Context: Reports: Other Associated Symptoms: Reports: No Other Symptoms Right Shoulder Pain Score (Numeric/FACES): 10 - Related Data Allergies Allergy/AdvReac Type Severity Reaction Status Date / Time Iodinated Contrast Media Allergy Swelling Verified 09/14/21 15:27 iopamidol [From Isovue-M] Allergy Change Verified 09/14/21 15:27 Mental Status Penicillins Allergy Anaphylactic Verified 09/14/21 15:27 Shock Home Meds: Home Meds Aspirin [Halfprin] 81 mg PO DAILY 08/20/19 [History] DULoxetine [Cymbalta] 60 mg PO BEDTIME 08/20/19 [History] Donepezil HCl [Aricept] 10 mg PO BEDTIME 08/20/19 [History] Levothyroxine 12.5 mg PO DAILY 08/20/19 [History] Loperamide [Imodium] 2 mg PO QID PRN 08/20/19 [History] Metoprolol Succinate [Toprol XL] 25 mg PO DAILY 08/20/19 [History] Mirtazapine 7.5 mg PO DAILY 08/20/19 [History] Pantoprazole Sodium [Protonix] 20 mg PO BID 08/20/19 [History] Pramipexole [Mirapex] 0.25 mg PO TID 08/20/19 [History] Pregabalin [Lyrica] 100 mg PO TID 08/20/19 [History] Sildenafil [Viagra] 100 mg PO DAILY PRN 08/20/19 [History] Vilazodone [Viibryd] 40 mg PO DAILY 08/20/19 [History] atorvaSTATin [Lipitor] 40 mg PO DAILY 08/20/19 [History] buPROPion HCL [Wellbutrin Xl] 150 mg PO DAILY 08/20/19 [History] Ibuprofen 800 mg PO ASDIRECTED 09/01/19 [History] Past Medical History Cardiovascular History: Reports: CAD, High Cholesterol, Hypertension, Stents Respiratory History: Reports: None Gastrointestinal History: Reports: GERD, Pancreatitis, Other (See Below) Other Gastrointestinal History: pancreatic problems Genitourinary History: Reports: None Musculoskeletal History: Reports: Fibromyalgia, Other (See Below) Other Musculoskeletal History: RIGHT SHOULDER TENINITIS. Right shoulder replacement 2020 Neurological History: Reports: Neuropathy, Peripheral, Parkinson's, Other (See Below) Other Neuro History: DEMENTIA. RESTLESS LEG SYNDROME Psychiatric History: Reports: Dementia, Depression Endocrine/Metabolic History: Reports: Hypothyroidism, Obesity/BMI 30+ Other Endocrine/Metabolic History: hx of hypoglycemia, not diagnosed with anything specific Hematologic History: Reports: None Immunologic History: Reports: None Oncologic (Cancer) History: Reports: None Dermatologic History: Reports: None - Infectious Disease History Infectious Disease History: Reports: Chicken Pox - Past Surgical History Head Surgeries/Procedures: Reports: None HEENT Surgical History: Reports: Oral Surgery, Other (See Below) Other HEENT Surgeries/Procedures: eye lid lift Cardiovascular Surgical History: Reports: Coronary Artery Bypass, Coronary Artery Stent Other Cardiovascular Surgeries/Procedures: triple bypass in 1999 GI Surgical History: Reports: Cholecystectomy, Colonoscopy, EGD, Hernia Repair/Other Male Surgical History: Reports: None Endocrine Surgical History: Reports: None Neurological Surgical History: Reports: None Musculoskeletal Surgical History: Reports: Arthroscopic Knee, Shoulder Surgery Oncologic Surgical History: Reports: None Dermatological Surgical History: Reports: None Social & Family History - Family History Family Medical History: No Pertinent Family History - Caffeine Use Caffeine Use: Reports: Coffee Caffeine Use Comment: 6 cups daily - Living Situation & Occupation Occupation: Employed ED ROS GENERAL - Review of Systems Review Of Systems: Comprehensive ROS is negative, except as noted in HPI. ED EXAM, UPPER BACK/NECK PAIN - Physical Exam Exam: See Below Exam Limited By: No Limitations General Appearance: Alert, WD/WN, Moderate Distress Eye Exam: Bilateral Eye: EOMI, Normal Inspection, PERRL Ears Exam: Normal External Exam, Normal Canal, Hearing Grossly Normal, Normal TMs Nose Exam: Normal Inspection, Normal Mucousa, No Blood Throat/Mouth Exam: Normal Inspection, Normal Lips, Normal Teeth, Normal Gums, Normal Oropharynx, Normal Voice, No Airway Compromise Head Exam: Atraumatic, Normocephalic Neck Exam: Non-Tender, Full Range of Motion, Normal Alignment, Normal Inspection Cardiovascular/Respiratory: Regular Rate, Rhythm, No M/R/G, Normal Peripheral Pulses, No JVD, Normal Breath Sounds, No Respiratory Distress GI/Abdominal: Normal Bowel Sounds, Soft, Non-Tender, No Organomegaly, No Distention, No Abnormal Bruit, No Mass (Male) Exam: Deferred Rectal (Males) Exam: Deferred Back Exam: Paraspinal Tenderness, Vertebral Tenderness Extremities: Arm Pain (right shoulder pain with limited range of motion) 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 As 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, No Motor/Sensory Deficits, Alert, Normal Mood/Affect, Oriented x 3 Psychiatric: Normal Affect, Normal Mood Skin Exam: Normal Color, Warm/Dry Lymphatic: No Adenopathy Course - Vital Signs Last Recorded V/S: Last Vital Signs Temp 98.3 F 09/14/21 15:14 Pulse 79 09/14/21 15:14 Resp 18 09/14/21 15:14 BP 141/81 H 09/14/21 15:14 Pulse Ox 93 L 09/14/21 15:14 - Orders/Labs/Meds Meds: Medications Discontinued Medications Generic Name Dose Route Start Last Admin Trade Name Tyler PRN Reason Stop Dose Admin Hydromorphone HCl 1 mg 09/14/21 14:27 Hydromorphone 1 Mg/Ml Syringe IVPUSH 09/14/21 14:28 ONETIME ONE Departure - Departure Time of Disposition: 15:35 Disposition: Home, Self-Care 01 Condition: Fair Clinical Impression: Right shoulder injury Qualifiers: Encounter type: initial encounter Qualified Code(s): S49.91XA - Unspecified injury of right shoulder and upper arm, initial encounter Low back pain Qualifiers: Chronicity: chronic Back pain laterality: left Sciatica presence: with sciatica Sciatica laterality: sciatica of left side Qualified Code(s): M54.42 - Lumbago with sciatica, left side; G89.29 - Other chronic pain - Discharge Information *PRESCRIPTION DRUG MONITORING PROGRAM REVIEWED*: Not Applicable *COPY OF PRESCRIPTION DRUG MONITORING REPORT IN PATIENT BLADIMIR: Not Applicable Instructions: Shoulder Sprain, Acute Back Pain, Adult Forms: ED Department Discharge Care Plan Goals: The patient was advised of the examination and x-ray results during the visit. The patient was given an IV dose of Dilaudid for pain control during the visit. The patient was encouraged to rest and slow down over the next 48 hours. If the patient has any additional symptoms or concerns, the patient should either return to the emergency department or visit his primary care facility. Sepsis Event Note (ED) - Evaluation Sepsis Screening Result: No Definite Risk - Focused Exam Vital Signs: Vital Signs Temp Pulse Resp BP Pulse Ox 09/14/21 15:14 98.3 F 79 18 141/81 H 93 L
== END 2021-09-14 16:10 | disposition home or self-care (01) ==
LOC: DL.ED 14:09
DX: S49.91XA Unspecified injury of right shoulder and upper arm, initial encounter (principal); G89.29 Other chronic pain; M54.42 Lumbago with sciatica, left side; I25.10 Atherosclerotic heart disease of native coronary artery without angina pectoris; E78.00 Pure hypercholesterolemia, unspecified; I10 Essential (primary) hypertension; K21.9 Gastro-esophageal reflux disease without esophagitis; E03.9 Hypothyroidism, unspecified; E66.9 Obesity, unspecified; Z68.30 Body mass index [BMI] 30.0-30.9, adult; Z91.041 Radiographic dye allergy status; Z88.0 Allergy status to penicillin; Z79.82 Long term (current) use of aspirin; Z79.899 Other long term (current) drug therapy; W10.9XXA Fall (on) (from) unspecified stairs and steps, initial encounter
CPT/HCPCS: 72100; 73030-RT; 96374; 99284-25; J1170

== ENCOUNTER 2021-10-09 15:52 | Emergency (ER) | payer MEDICARE, MEDICAID ==
[2021-10-09] MEDS ORDERED: Nitroglycerin 0.4 MG Tab.SL SL ONE (17:47)
[2021-10-09 17:50] LABS: ANION GAP 14.5 mEq/L (7-13); CHLORIDE,CL 94 mmol/L (98-107); SODIUM,NA 131 mmol/L (136-145)
[2021-10-09] MEDS ORDERED: Aspirin 81 MG Tab.Chew PO ONE (18:00)
[2021-10-09 19:48] LABS: AMPHETAMINES,URINE NEGATIVE (NEGATIVE); BARBITURATES,URINE NEGATIVE (NEGATIVE); BENZODIAZEPINE,URINE NEGATIVE (NEGATIVE); MDMA (ECSTASY), URINE NEGATIVE (NEGATIVE); METHADONE,URINE NEGATIVE (NEGATIVE); METHAMPHETAMINES,URINE NEGATIVE (NEGATIVE); OPIATES,URINE POSITIVE (NEGATIVE); OXYCODONE,URINE POSITIVE (NEGATIVE); PHENCYCLIDINE,URINE NEGATIVE (NEGATIVE); TCA,URINE POSITIVE (NEGATIVE)
[2021-10-09] MEDS ORDERED: Ketorolac 30 MG/ML SDV IVPUSH ONE (19:54)
== END 2021-10-09 20:23 | disposition home or self-care (01) ==
LOC: DL.ED 15:52
DX: M54.50 Low back pain, unspecified (principal); R07.9 Chest pain, unspecified; I25.10 Atherosclerotic heart disease of native coronary artery without angina pectoris; E78.00 Pure hypercholesterolemia, unspecified; I10 Essential (primary) hypertension; K21.9 Gastro-esophageal reflux disease without esophagitis; E66.9 Obesity, unspecified; Z68.30 Body mass index [BMI] 30.0-30.9, adult; Z88.0 Allergy status to penicillin; Z91.041 Radiographic dye allergy status; Z79.82 Long term (current) use of aspirin; Z79.899 Other long term (current) drug therapy
CPT/HCPCS: 36415; 71045; 80053; 80305; 81003; 82150; 83690; 84484; 85025; 86140; 93005; 96374; 99284; A9270; J1885

== ENCOUNTER 2021-10-15 09:04 | Emergency (ER) | payer MEDICARE, MEDICAID ==
[2021-10-15] MEDS ORDERED: Ketorolac 30 MG/ML SDV IM ONE (09:39)
[2021-10-15] MEDS ORDERED: Orphenadrine 60 MG/2 ML Inj IM ONE (09:39)
== END 2021-10-15 11:00 | disposition home or self-care (01) ==
LOC: DL.ED 09:04
DX: M51.36 Other intervertebral disc degeneration, lumbar region (principal); M16.0 Bilateral primary osteoarthritis of hip; I25.10 Atherosclerotic heart disease of native coronary artery without angina pectoris; I10 Essential (primary) hypertension; E78.00 Pure hypercholesterolemia, unspecified; K21.9 Gastro-esophageal reflux disease without esophagitis; E03.9 Hypothyroidism, unspecified; E66.9 Obesity, unspecified; Z91.041 Radiographic dye allergy status; Z88.0 Allergy status to penicillin; Z79.82 Long term (current) use of aspirin; Z79.899 Other long term (current) drug therapy
CPT/HCPCS: 72100; 72170; 96372; 99284; J1885; J2360

== ENCOUNTER 2021-10-25 11:54 | Inpatient (IN) | payer MEDICARE, MEDICAID ==
[2021-10-25] MEDS ORDERED: Sodium Chloride 0.9% 10 ML Syringe FLUSH PRN (12:32)
[2021-10-25] MEDS ORDERED: HYDROmorphone 1 MG/ML Syringe IVPUSH ONE (12:40)
[2021-10-25] MEDS ORDERED: Ondansetron 4 MG/2 ML SDV IV ONE (12:40)
[2021-10-25] MEDS ORDERED: Sodium Chloride 0.9% 1,000 ML IV ONE (12:40)
[2021-10-25] MEDS ORDERED: Acetaminophen 325 MG Tab PO ONE (12:40)
[2021-10-25 13:36] LABS: ANION GAP 16.4 mEq/L (7-13); CHLORIDE,CL 95 mmol/L (98-107); SODIUM,NA 135 mmol/L (138-146)
[2021-10-25] MEDS ORDERED: Lidocaine 1% 30 ML SDV INJECT ONE (13:43)
[2021-10-25] MEDS ORDERED: ceFAZolin 2 GM in Premix Bag 1 BAG IV ONE (14:35)
[2021-10-25] MEDS ORDERED: Ondansetron 4 MG/2 ML SDV IVPUSH PRN (15:18)
[2021-10-25] MEDS ORDERED: Docusate Sodium 100 MG Cap PO PRN (15:18)
[2021-10-25] MEDS ORDERED: Acetaminophen 325 MG Tab PO PRN (15:41)
[2021-10-25] MEDS: oxyCODONE 5 MG Tab PO PRN (20:23)
[2021-10-25] MEDS ORDERED: Meropenem 1 GM in Sodium Chloride 0.9% 100 ML IV SCH (22:00)
[2021-10-26] MEDS: oxyCODONE 5 MG Tab PO PRN ×2 (02:32→08:27)
[2021-10-26 06:00] LABS: CHLORIDE,CL 95 mmol/L (98-107)
[2021-10-26 08:23] LABS: ANION GAP 15.1 mEq/L (7-13); SODIUM,NA 135 mmol/L (138-146)
[2021-10-26] MEDS ORDERED: Enoxaparin 40 MG/0.4 ML Syringe SUBCUT SCH (09:00)
[2021-10-26] MEDS ORDERED: Cyclobenzaprine 10 MG Tab PO PRN (10:42)
[2021-10-26] MEDS ORDERED: SILDENAFIL 100 MG PO PRN (10:42)
[2021-10-26] MEDS ORDERED: Aspirin 81 MG Tab.EC PO SCH (10:45)
[2021-10-26] MEDS ORDERED: buPROPion 150 MG Tab.ER PO SCH (11:00)
[2021-10-26] MEDS ORDERED: Ibuprofen 200 MG Tab PO PRN (11:35)
[2021-10-26] MEDS ORDERED: DULoxetine 30 MG Cap PO SCH (11:45)
[2021-10-26] MEDS ORDERED: Pantoprazole 40 MG Tab.CR PO SCH (11:45)
[2021-10-26] MEDS ORDERED: Potassium Chloride 10 MEQ Tab.ER PO ONE (11:59)
[2021-10-26] MEDS ORDERED: Donepezil 10 MG Tab PO SCH (12:00)
[2021-10-26] MEDS ORDERED: Pregabalin 50 MG Cap PO SCH (14:00)
[2021-10-26] MEDS ORDERED: Pramipexole 0.125 MG Tab PO SCH (14:00)
[2021-10-26] MEDS ORDERED: Mirtazapine 15 MG Tab PO SCH (21:00)
[2021-10-26] MEDS ORDERED: hydrOXYzine HCl 25 MG Tab PO SCH (21:00)
[2021-10-27] MEDS ORDERED: Levothyroxine 25 MCG Tab PO SCH (06:00)
[2021-10-27] MEDS ORDERED: Non-Formulary Medication 1 Each (Vilazodone [Viibryd] 40 MG Tablet) PO SCH (09:00)
[2021-10-27] MEDS ORDERED: Metoprolol Succinate 25 MG Tab.ER PO SCH (09:00)
[2021-10-27] MEDS ORDERED: atorvaSTATin 20 MG Tab PO SCH (09:00)
== END 2021-10-26 12:30 | DRG 603 ==
LOC: DL.ED 11:54 → DL.MS 14:31 → DL.ED 14:45
PROVIDERS: ADMIT Internal Medicine; ATTEND Internal Medicine
DX: L02.413 Cutaneous abscess of right upper limb (principal); I25.10 Atherosclerotic heart disease of native coronary artery without angina pectoris; E78.00 Pure hypercholesterolemia, unspecified; I10 Essential (primary) hypertension; Z95.5 Presence of coronary angioplasty implant and graft; K21.9 Gastro-esophageal reflux disease without esophagitis; M79.7 Fibromyalgia; G20 Parkinson's disease; F03.90 Unspecified dementia, unspecified severity, without behavioral disturbance, psychotic disturbance, mood disturbance, and anxiety; G25.81 Restless legs syndrome; F32.A Depression, unspecified; G62.9 Polyneuropathy, unspecified; E03.9 Hypothyroidism, unspecified; E66.9 Obesity, unspecified; G89.29 Other chronic pain; M54.9 Dorsalgia, unspecified; Z20.822 Contact with and (suspected) exposure to COVID-19; Z91.09 Other allergy status, other than to drugs and biological substances; Z88.0 Allergy status to penicillin; Z91.041 Radiographic dye allergy status; Z96.611 Presence of right artificial shoulder joint; Z95.1 Presence of aortocoronary bypass graft; Z90.49 Acquired absence of other specified parts of digestive tract; Z88.8 Allergy status to other drugs, medicaments and biological substances; Z98.890 Other specified postprocedural states; Z79.82 Long term (current) use of aspirin; Z79.899 Other long term (current) drug therapy; Z79.890 Hormone replacement therapy
CPT/HCPCS: 36415; 73200; 80053; 83605; 85025; 86140; 87040 ×2; 87070; 87205; A9270; J1170; J2405; J3370; J7030; J7050; U0002; 10060; 80048; 87077; 87186; 96374; 96375; 99285-25; J0690; J1650; J3490

== ENCOUNTER 2023-07-05 13:07 | Emergency (ER) | payer MEDICARE, MEDICAID ==
[2023-07-05] MEDS ORDERED: Dexamethasone 4 MG/ML SDV IM ONE (14:48)
== END 2023-07-05 15:08 | disposition home or self-care (01) ==
LOC: DL.ED 13:07
DX: M79.642 Pain in left hand (principal); I25.10 Atherosclerotic heart disease of native coronary artery without angina pectoris; E78.00 Pure hypercholesterolemia, unspecified; I10 Essential (primary) hypertension; K21.9 Gastro-esophageal reflux disease without esophagitis; E66.9 Obesity, unspecified; E03.9 Hypothyroidism, unspecified; Z95.1 Presence of aortocoronary bypass graft; Z79.82 Long term (current) use of aspirin; Z79.899 Other long term (current) drug therapy; Z91.041 Radiographic dye allergy status; Z88.5 Allergy status to narcotic agent; Z88.0 Allergy status to penicillin; Z68.24 Body mass index [BMI] 24.0-24.9, adult
CPT/HCPCS: 96372; 99282; 99283; J1100

== ENCOUNTER 2023-10-13 11:51 | Emergency (ER) | payer MEDICARE | END 2023-10-13 13:41 | disposition home or self-care (01) | LOC: DL.ED 11:51 | DX: M25.532 Pain in left wrist (principal); I10 Essential (primary) hypertension; I25.10 Atherosclerotic heart disease of native coronary artery without angina pectoris; K21.9 Gastro-esophageal reflux disease without esophagitis; E03.9 Hypothyroidism, unspecified; E66.9 Obesity, unspecified; E78.00 Pure hypercholesterolemia, unspecified; F17.210 Nicotine dependence, cigarettes, uncomplicated; Z90.49 Acquired absence of other specified parts of digestive tract; Z88.0 Allergy status to penicillin; Z88.5 Allergy status to narcotic agent; Z88.8 Allergy status to other drugs, medicaments and biological substances; Z91.041 Radiographic dye allergy status; Z79.82 Long term (current) use of aspirin; Z79.899 Other long term (current) drug therapy; Z79.2 Long term (current) use of antibiotics; Z68.28 Body mass index [BMI] 28.0-28.9, adult; W00.9XXA Unspecified fall due to ice and snow, initial encounter | CPT/HCPCS: 73110-LT; 99283 ==

== ENCOUNTER 2023-12-13 06:09 | Day surgery (SDC) | payer MEDICARE ==
[2023-12-13] MEDS ORDERED: Midazolam 1 MG/ML 2 ML SDV IV ONE (06:10)
[2023-12-13] MEDS ORDERED: fentaNYL 100 MCG/2 ML SDV IV ONE (06:10)
[2023-12-13] MEDS ORDERED: Midazolam 1 MG/ML 2 ML SDV ONE (06:34)
[2023-12-13] MEDS ORDERED: fentaNYL 100 MCG/2 ML SDV ONE (06:35)
[2023-12-13] MEDS: Dextrose 5%-0.45% NaCl 1,000 ML IV SCH (07:01)
[2023-12-13] MEDS: fentaNYL 100 MCG/2 ML SDV IV ONE ×2 (07:58→07:59)
[2023-12-13] MEDS: Midazolam 1 MG/ML 2 ML SDV IV ONE ×2 (08:00→08:01)
== END 2023-12-13 10:00 | disposition home or self-care (01) ==
LOC: DL.ENDO 06:09
PROVIDERS: ATTEND Internal Medicine Gastroenterology
DX: K29.50 Unspecified chronic gastritis without bleeding (principal); K21.9 Gastro-esophageal reflux disease without esophagitis; E78.5 Hyperlipidemia, unspecified; I10 Essential (primary) hypertension; E03.9 Hypothyroidism, unspecified; D64.9 Anemia, unspecified; R63.4 Abnormal weight loss; Z88.0 Allergy status to penicillin; Z79.899 Other long term (current) drug therapy
CPT/HCPCS: 43239; 87077; J2250; J3010; J7042; 88305; 88342

== ENCOUNTER 2023-12-19 14:55 | Observation (INO) | payer MEDICARE ==
[2023-12-19 15:34] LABS: BASOPHILS PERCENT AUTO 0.4 % (0.0-1.0); EOSINOPHILS PERCENT AUTO 4.2 % (1.0-3.0); HEMATOCRIT 38.5 % (40.0-54.0); HEMOGLOBIN 12.5 g/dL (14.0-18.0); LYMPHOCYTES PERCENT AUTO 22.6 % (20.5-50.1); MEAN CORPUSCULAR HEMOGLOBIN 26.9 pg (27.0-34.0); MEAN CORPUSCULAR HGB CONC 32.5 g/dL (33.0-35.0); MONOCYTES PERCENT AUTO 13.7 % (2-8); NEUTROPHILS PERCENT AUTO 59.1 % (42.2-75.2); PLATELET COUNT,PLT 265 10^3/uL (150-450); RED BLOOD CELL COUNT 4.64 10^6/uL (4.6-6.2); WHITE BLOOD CELL COUNT,WBC 6.7 10^3/uL (5.0-10.0)
[2023-12-19] MEDS: Sodium Chloride 0.9% 10 ML Syringe FLUSH PRN (15:44)
[2023-12-19 15:57] LABS: A/G RATIO 1.2; ANION GAP 13.9 mEq/L (7-13); BILIRUBIN TOTAL 0.5 mg/dL (0.2-1.0); BUN/CREATININE RATIO 10.7 (No establ ref range); CALCIUM 9.1 mg/dL (8.5-10.1); CREATININE 1.12 mg/dL (0.70-1.30); EST CRCL DRUG DOSING (CG) 69.15 mL/min; POTASSIUM,K 3.9 mmol/L (3.5-5.1); PROTEIN TOTAL,TP 7.3 g/dL (6.4-8.2)
[2023-12-19] MEDS ORDERED: Acetaminophen 325 MG Tab PO PRN (17:39)
[2023-12-19] MEDS: Aspirin 81 MG Tab.Chew PO ONE (17:46)
[2023-12-19] MEDS ORDERED: Furosemide 20 MG Tab PO PRN (17:47)
[2023-12-19] MEDS ORDERED: SILDENAFIL 100 MG PO PRN ×2 (17:47→17:55)
[2023-12-19] MEDS ORDERED: Ergocalciferol (Vitamin D2) 1.25 MG Cap PO SCH (18:00)
[2023-12-19] MEDS: DULoxetine 30 MG Cap PO SCH (21:14)
[2023-12-20] MEDS: Pantoprazole 40 MG Tab.CR PO SCH (05:14)
[2023-12-20 06:35] LABS: A/G RATIO 1.2; ALBUMIN 4.1 g/dL (3.4-5.0); ANION GAP 11.8 mEq/L (7-13); BILIRUBIN TOTAL 0.5 mg/dL (0.2-1.0); BUN/CREATININE RATIO 14.7 (No establ ref range); CALCIUM 9.4 mg/dL (8.5-10.1); CREATININE 1.09 mg/dL (0.70-1.30); EST CRCL DRUG DOSING (CG) 72.04 mL/min; MAGNESIUM 2.1 mg/dL (1.8-2.4); POTASSIUM,K 4.8 mmol/L (3.5-5.1); PROTEIN TOTAL,TP 7.5 g/dL (6.4-8.2)
[2023-12-20 06:53] LABS: BASOPHILS PERCENT AUTO 0.7 % (0.0-1.0); HEMATOCRIT 40.8 % (40.0-54.0); HEMOGLOBIN 13.4 g/dL (14.0-18.0); LYMPHOCYTES PERCENT AUTO 20.6 % (20.5-50.1); MEAN CORPUSCULAR HEMOGLOBIN 27.2 pg (27.0-34.0); MEAN CORPUSCULAR HGB CONC 32.8 g/dL (33.0-35.0); MEAN CORPUSCULAR VOLUME 82.9 fL (80-100); MONOCYTES PERCENT AUTO 13.6 % (2-8); NEUTROPHILS PERCENT AUTO 60.1 % (42.2-75.2); PLATELET COUNT,PLT 279 10^3/uL (150-450); RED BLOOD CELL COUNT 4.92 10^6/uL (4.6-6.2); WHITE BLOOD CELL COUNT,WBC 7.2 10^3/uL (5.0-10.0)
[2023-12-20] MEDS ORDERED: Acetaminophen/HYDROcodone 325-5 MG Tab PO PRN (08:29)
[2023-12-20] MEDS: buPROPion 150 MG Tab.ER PO SCH (08:58)
[2023-12-20] MEDS: LORazepam 1 MG Tab PO PRN (08:58)
[2023-12-20] MEDS: Levothyroxine 25 MCG Tab PO SCH (08:59)
[2023-12-20] MEDS: atorvaSTATin 20 MG Tab PO SCH (08:59)
[2023-12-20] MEDS: Gadobenate Dimeglumine 529 MG/ML 20 ML SDV IVPUSH ONE (10:02)
== END 2023-12-20 14:51 | disposition home or self-care (01) ==
LOC: DL.ED 14:55 → DL.MS 17:36
PROVIDERS: ADMIT Emergency Medicine; ATTEND Emergency Medicine
DX: G43.809 Other migraine, not intractable, without status migrainosus (principal); I67.1 Cerebral aneurysm, nonruptured; R40.4 Transient alteration of awareness; G20.A1 Parkinson's disease without dyskinesia, without mention of fluctuations; E03.9 Hypothyroidism, unspecified; I10 Essential (primary) hypertension; I25.10 Atherosclerotic heart disease of native coronary artery without angina pectoris; G31.9 Degenerative disease of nervous system, unspecified; K21.9 Gastro-esophageal reflux disease without esophagitis; E78.00 Pure hypercholesterolemia, unspecified; F17.210 Nicotine dependence, cigarettes, uncomplicated; Z95.5 Presence of coronary angioplasty implant and graft; Z79.890 Hormone replacement therapy; Z79.82 Long term (current) use of aspirin; Z79.899 Other long term (current) drug therapy; Z88.0 Allergy status to penicillin; Z88.5 Allergy status to narcotic agent
CPT/HCPCS: 36415; 70450; 70544; 70547; 70549; 71045; 80053; 80061; 83605; 83735; 84484; 85025; 93005; 93010; 99223; 99239; 99284; 99285; A9270-GY; A9577; J3490

== ENCOUNTER 2024-01-03 07:28 | Day surgery (SDC) | payer MEDICARE ==
[2024-01-03] MEDS: Dextrose 5%-0.45% NaCl 1,000 ML IV SCH (08:03)
[2024-01-03] MEDS ORDERED: Midazolam 1 MG/ML 2 ML SDV ONE (08:13)
[2024-01-03] MEDS ORDERED: fentaNYL 100 MCG/2 ML SDV ONE (08:13)
[2024-01-03] MEDS: fentaNYL 100 MCG/2 ML SDV IV ONE ×2 (09:03→09:04)
[2024-01-03] MEDS: Midazolam 1 MG/ML 2 ML SDV IV ONE ×4 (09:04→09:13)
== END 2024-01-03 11:19 | disposition home or self-care (01) ==
LOC: DL.ENDO 07:28
PROVIDERS: ATTEND Internal Medicine Gastroenterology
DX: K64.8 Other hemorrhoids (principal); K64.4 Residual hemorrhoidal skin tags; K57.30 Diverticulosis of large intestine without perforation or abscess without bleeding; K21.9 Gastro-esophageal reflux disease without esophagitis; I10 Essential (primary) hypertension; G20.A1 Parkinson's disease without dyskinesia, without mention of fluctuations; F02.80 Dementia in other diseases classified elsewhere, unspecified severity, without behavioral disturbance, psychotic disturbance, mood disturbance, and anxiety; E78.5 Hyperlipidemia, unspecified; E03.9 Hypothyroidism, unspecified; E61.1 Iron deficiency
CPT/HCPCS: 45378; J2250; J3010; J7042

== ENCOUNTER 2024-07-24 09:24 | Emergency (ER) | payer MEDICARE, MEDICAID ==
[2024-07-24] MEDS ORDERED: Sodium Chloride 0.9% 10 ML Syringe FLUSH PRN (09:53)
[2024-07-24 10:11] LABS: BASOPHILS PERCENT AUTO 0.3 % (0.0-1.0); EOSINOPHILS PERCENT AUTO 0.4 % (1.0-3.0); HEMATOCRIT 41.5 % (40.0-54.0); HEMOGLOBIN 13.9 g/dL (14.0-18.0); LYMPHOCYTES PERCENT AUTO 13.8 % (20.5-50.1); MEAN CORPUSCULAR HGB CONC 33.5 g/dL (33.0-35.0); MEAN CORPUSCULAR VOLUME 83.7 fL (80-100); MONOCYTES PERCENT AUTO 11.3 % (2-8); NEUTROPHILS PERCENT AUTO 74.2 % (42.2-75.2); PLATELET COUNT,PLT 339 10^3/uL (150-450); RED BLOOD CELL COUNT 4.96 10^6/uL (4.6-6.2); WHITE BLOOD CELL COUNT,WBC 11.5 10^3/uL (5.0-10.0)
[2024-07-24] MEDS: Sodium Chloride 0.9% 1,000 ML IV ONE (10:15)
[2024-07-24 10:30] LABS: A/G RATIO 1.2; ALANINE AMINOTRANSFERASE,ALT 24 U/L (16-63); ALBUMIN 4.3 g/dL (3.4-5.0); ALKALINE PHOSPHATASE 120 U/L (46-116); ANION GAP 14.2 mEq/L (7-13); ASPARTATE AMNIOTRANSFERASE,AST 18 U/L (15-37); BILIRUBIN TOTAL 0.6 mg/dL (0.2-1.0); BLOOD UREA NITROGEN,BUN 16 mg/dL (7-18); BUN/CREATININE RATIO 17.8 (No establ ref range); CALCIUM 10.1 mg/dL (8.5-10.1); CARBON DIOXIDE,CO2 26 mmol/L (21-32); CHLORIDE,CL 102 mmol/L (98-107); EST CRCL DRUG DOSING (CG) 76.33 mL/min; GLUCOSE RANDOM 106 mg/dL (70-99); LIPASE 144 U/L (16-77); MAGNESIUM 1.8 mg/dL (1.8-2.4); POTASSIUM,K 3.2 mmol/L (3.5-5.1); PROTEIN TOTAL,TP 7.8 g/dL (6.4-8.2); SODIUM,NA 139 mmol/L (136-145)
[2024-07-24 10:31] LABS: C-REACTIVE PROTEIN < 0.50 ng/dL (<=0.50); ESTIMATED GFR 97 mL/min (>=60)
[2024-07-24 10:34] LABS: LACTIC ACID 2.1 mmol/L (0.4-2.0)
[2024-07-24] MEDS ORDERED: Iopamidol 612 MG/ML 100 ML Bottle IVPUSH ONE (10:39)
[2024-07-24 10:42] LABS: APPEARANCE,URINE CLEAR (CLEAR); BILIRUBIN,URINE NEGATIVE (NEGATIVE); COLOR,URINE YELLOW (YELLOW); GLUCOSE,URINE NEGATIVE (NEGATIVE); KETONES,URINE NEGATIVE (NEGATIVE); LEUKOCYTE ESTERASE,URINE NEGATIVE (NEGATIVE); NITRITE,URINE NEGATIVE (NEGATIVE); OCCULT BLOOD,URINE NEGATIVE (NEGATIVE); PROTEIN,URINE NEGATIVE (NEGATIVE); UROBILINOGEN,URINE 0.2 mg/dL (0.2-1.0)
[2024-07-24] MEDS: Potassium Chloride 20 MEQ in Premix Bag 1 BAG IV ONE (11:16)
== END 2024-07-24 12:00 | disposition home or self-care (01) ==
LOC: DL.ED 09:24
DX: R13.10 Dysphagia, unspecified (principal); I10 Essential (primary) hypertension; I25.10 Atherosclerotic heart disease of native coronary artery without angina pectoris; E78.00 Pure hypercholesterolemia, unspecified; K21.9 Gastro-esophageal reflux disease without esophagitis; E03.9 Hypothyroidism, unspecified; E66.9 Obesity, unspecified; Z79.82 Long term (current) use of aspirin; Z79.899 Other long term (current) drug therapy; Z79.890 Hormone replacement therapy; Z88.0 Allergy status to penicillin; Z88.5 Allergy status to narcotic agent; Z91.041 Radiographic dye allergy status; Z68.1 Body mass index [BMI] 19.9 or less, adult
CPT/HCPCS: 36415; 80053; 81003; 83605; 83615; 83690; 83735; 85025; 86140; 96365; 99284; J3480; J7030

== ENCOUNTER 2024-10-30 06:18 | Day surgery (SDC) | payer MEDICARE, MEDICAID ==
[2024-10-30] MEDS: Sodium Chloride 0.9% 1,000 ML IV SCH (06:38)
[2024-10-30] MEDS ORDERED: Midazolam 1 MG/ML 2 ML SDV IV ONE (08:27)
[2024-10-30] MEDS ORDERED: fentaNYL 100 MCG/2 ML SDV IV ONE (08:27)
[2024-10-30] MEDS ORDERED: Midazolam 1 MG/ML 2 ML SDV ONE (08:27)
[2024-10-30] MEDS ORDERED: fentaNYL 100 MCG/2 ML SDV ONE (08:27)
[2024-10-30] MEDS: fentaNYL 100 MCG/2 ML SDV IV ONE (08:43)
[2024-10-30] MEDS: Midazolam 1 MG/ML 2 ML SDV IV ONE ×3 (08:44→08:47)
== END 2024-10-30 10:12 | disposition home or self-care (01) ==
LOC: DL.ENDO 06:18
PROVIDERS: ATTEND Internal Medicine Gastroenterology
DX: D50.9 Iron deficiency anemia, unspecified (principal); I10 Essential (primary) hypertension; G20.A1 Parkinson's disease without dyskinesia, without mention of fluctuations; F02.80 Dementia in other diseases classified elsewhere, unspecified severity, without behavioral disturbance, psychotic disturbance, mood disturbance, and anxiety; E03.9 Hypothyroidism, unspecified; E78.5 Hyperlipidemia, unspecified; K21.9 Gastro-esophageal reflux disease without esophagitis
CPT/HCPCS: 43239; 88305; J2250; J3010; J7030

== ENCOUNTER 2025-01-29 20:00 | Emergency (ER) | payer MEDICARE, MEDICAID ==
[2025-01-29 20:38] LABS: BASOPHILS PERCENT AUTO 0.1 % (0.0-1.0); EOSINOPHILS PERCENT AUTO 0.1 % (1.0-3.0); HEMATOCRIT 40.8 % (40.0-54.0); HEMOGLOBIN 13.5 g/dL (14.0-18.0); LYMPHOCYTES PERCENT AUTO 11.1 % (20.5-50.1); MEAN CORPUSCULAR HEMOGLOBIN 31.7 pg (27.0-34.0); MEAN CORPUSCULAR HGB CONC 33.1 g/dL (33.0-35.0); MEAN CORPUSCULAR VOLUME 95.8 fL (80-100); MONOCYTES PERCENT AUTO 16.1 % (2-8); NEUTROPHILS PERCENT AUTO 72.6 % (42.2-75.2); PLATELET COUNT,PLT 208 10^3/uL (150-450); RED BLOOD CELL COUNT 4.26 10^6/uL (4.6-6.2); WHITE BLOOD CELL COUNT,WBC 15.1 10^3/uL (5.0-10.0)
[2025-01-29 20:56] LABS: A/G RATIO 1.1; ANION GAP 8.3 mEq/L (7-13); BILIRUBIN TOTAL 0.6 mg/dL (0.2-1.0); BUN/CREATININE RATIO 19.1 (No establ ref range); C-REACTIVE PROTEIN 4.16 ng/dL (<=0.50); CALCIUM 9.5 mg/dL (8.5-10.1); CREATININE 0.94 mg/dL (0.70-1.30); EST CRCL DRUG DOSING (CG) 85.67 mL/min; POTASSIUM,K 3.3 mmol/L (3.5-5.1); PROTEIN TOTAL,TP 7.5 g/dL (6.4-8.2)
[2025-01-29 21:01] LABS: LACTIC ACID 1.3 mmol/L (0.4-2.0)
[2025-01-29 21:17] LABS: SEDIMENTATION RATE MANUAL 15 mm/hr (0-15)
[2025-01-29] MEDS: oxyCODONE 5 MG Tab PO ONE ×2 (22:49)
== END 2025-01-29 23:37 | disposition home or self-care (01) ==
LOC: DL.ED 20:00
DX: L76.22 Postprocedural hemorrhage of skin and subcutaneous tissue following other procedure (principal); I25.10 Atherosclerotic heart disease of native coronary artery without angina pectoris; I10 Essential (primary) hypertension; I48.91 Unspecified atrial fibrillation; E03.9 Hypothyroidism, unspecified; Z88.5 Allergy status to narcotic agent; Z91.041 Radiographic dye allergy status; Z88.0 Allergy status to penicillin; Z79.82 Long term (current) use of aspirin; Z79.899 Other long term (current) drug therapy; Z79.890 Hormone replacement therapy; Z95.5 Presence of coronary angioplasty implant and graft
CPT/HCPCS: 36415; 70490; 80053; 83605; 85025; 85651; 86140; 99282; 99284; A9270